=== PATIENT | male | born 1995 | race Caucasian/White ===

== ENCOUNTER → 2020-08-30 | Outpatient (CLI) | payer BC ==
[~2020-08-30] MED LIST: FLUT9.9S NS; MONT10TA6 PO; MULT-658 PO; TIZA4CAP2 PO
== END | disposition home or self-care (01) ==
LOC: STAR 15:30
PROVIDERS: ATTEND Otolaryngology
DX: Z20.822 Contact with and (suspected) exposure to COVID-19 (principal)
CPT/HCPCS: 87635

== ENCOUNTER 2020-09-05 06:26 | Day surgery (SDC) | payer BC ==
[~2020-09-05] VITALS: Ht 175.3 cm; Wt 91.0 kg
[2020-09-05 06:47] VITALS: BP 145/101
[2020-09-05] MEDS ORDERED: BACITRACIN OINT 500U/GM, 15 GM ONE (06:51)
[2020-09-05] MEDS ORDERED: BACITRACIN 50,000 UNIT ONE (06:52)
[2020-09-05] MEDS ORDERED: FLUORESCEIN SODIUM 500 MG/5 ML ONE (06:52)
[2020-09-05] MEDS ORDERED: OXYMETAZOLINE NASAL SPRAY 0.05%,30ML ONE (06:52)
[2020-09-05] MEDS ORDERED: EPINEPHRINE 1 MG/ML, 1ML ONE (06:52)
[2020-09-05] MEDS ORDERED: LIDOCAINE/PF 1%, 30ML ONE (06:52)
[2020-09-05] MEDS ORDERED: EPINEPHRINE TOPICAL SOLN 1 MG/ML, 30ML ONE (06:56)
[2020-09-05] MEDS ORDERED: LACTATED RINGERS 1,000 ML IV SCH (07:00)
[2020-09-05] MEDS ORDERED: CHLORHEXIDINE 15 ML UDC MM ONE (07:00)
[2020-09-05] MEDS ORDERED: MIDAZOLAM 1 MG/ML, 2ML ONE (07:14)
[2020-09-05] MEDS ORDERED: FENTANYL PF 250 MCG/5ML ONE (07:14)
[2020-09-05] MEDS ORDERED: DEXAMETHASONE 4 MG/ML, 1ML ONE ×2 (07:55)
[2020-09-05] MEDS ORDERED: LIDOCAINE-MPF 2% ,5ML ONE (07:56)
[2020-09-05] MEDS ORDERED: PROPOFOL 10 MG/ML, 20ML ONE (07:56)
[2020-09-05] MEDS ORDERED: ROCURONIUM 10MG/ML,5ML ONE ×2 (07:56)
[2020-09-05] MEDS ORDERED: CEFAZOLIN 1,000 MG ONE ×2 (07:56)
[2020-09-05] MEDS ORDERED: ONDANSETRON 2MG/ML, 2ML ONE (07:57)
[2020-09-05] MEDS ORDERED: OXYcodone 5 MG/5 ML ORAL.SOL UDC PO PRN (08:30)
[2020-09-05] MEDS ORDERED: LABETALOL 5MG/ML, 20ML IV PRN (08:30)
[2020-09-05] MEDS ORDERED: ACETAMINOPHEN 325 MG TABLET PO PRN (08:30)
[2020-09-05] MEDS ORDERED: ONDANSETRON 2MG/ML, 2ML IVPush PRN (08:30)
[2020-09-05] MEDS ORDERED: DIPHENHYDRAMINE 50 MG/ML, 1ML IVPush PRN (08:30)
[2020-09-05] MEDS ORDERED: HYDROmorphone 1 MG/ML, 1ML INJ IVPush PRN (08:30)
[2020-09-05] MEDS ORDERED: MEPERIDINE/PF 25MG/0.5ML IVPush PRN (08:30)
[2020-09-05] MEDS ORDERED: PROMETHAZINE 25 MG/ML, 1ML IVPush PRN (08:30)
[2020-09-05] MEDS ORDERED: DIAZEPAM 5 MG/ML, 2ML IVPush PRN (08:30)
[2020-09-05] MEDS ORDERED: hydrALAzine 20 MG/ML, 1ML IV PRN (08:30)
[2020-09-05] MEDS ORDERED: GLYCOPYRROLATE 0.2MG/1ML, 5ML ONE (09:43)
[2020-09-05] MEDS ORDERED: NEOSTIGMINE 1 MG/ML, 10ML ONE (09:43)
[2020-09-05] MEDS ORDERED: FENTANYL PF 100 MCG/2ML ONE (10:14)
[2020-09-05] MEDS ORDERED: OXYcodone 5 MG/5 ML ORAL.SOL UDC ONE (10:15)
[2020-09-05] MEDS: FENTANYL PF 100 MCG/2ML IV PRN ×2 (10:23→10:29)
[2020-09-05] MEDS ORDERED: hydrALAzine 20 MG/ML, 1ML ONE (12:45)
[2020-09-05] MEDS ORDERED: hydrALAzine 20 MG/ML, 1ML IV ONE (13:00)
== END 2020-09-05 15:25 | disposition home or self-care (01) ==
LOC: OUT 06:26
PROVIDERS: ATTEND Otolaryngology
DX: J34.2 Deviated nasal septum (principal); J32.4 Chronic pansinusitis; J32.0 Chronic maxillary sinusitis; J33.8 Other polyp of sinus; J34.89 Other specified disorders of nose and nasal sinuses; I10 Essential (primary) hypertension; Z79.899 Other long term (current) drug therapy; Z88.0 Allergy status to penicillin
CPT/HCPCS: 30520; 31253; 31259; 31267; 87070; 87075; 87102; 87205; 88304; C9122; J0171; J0360; J0690; J1100; J2250; J2405; J2704; J2710; J3010; J7120

== ENCOUNTER 2020-09-12 07:12 | Day surgery (SDC) | payer BC ==
[~2020-09-12] VITALS: Ht 175.3 cm; Wt 90.7 kg
[~2020-09-12 07:12] MED LIST changes: +OXYMETAZOLINE NASAL SPRAY 0.05%,30ML ONE
[2020-09-12 07:40] VITALS: BP 139/96
[2020-09-12] MEDS ORDERED: LIDOCAINE 4%, 4 ML SYR/CANN TP ONE (08:58)
== END 2020-09-12 09:12 | disposition home or self-care (01) ==
LOC: OUT 07:12
PROVIDERS: ATTEND Otolaryngology
DX: J32.2 Chronic ethmoidal sinusitis (principal); J33.8 Other polyp of sinus; J34.2 Deviated nasal septum; Z20.822 Contact with and (suspected) exposure to COVID-19; Z79.899 Other long term (current) drug therapy
CPT/HCPCS: 87635